=== PATIENT | female | born 1970 | race Caucasian/White ===

== ENCOUNTER 2019-03-11 22:40 | Emergency (ER) | payer MEDICARE, MEDICAID ==
[~2019-03-11] VITALS: Ht 162.6 cm; Wt 107.0 kg
[~2019-03-11 22:40] MED LIST: CLON-285 PO; DOCU-273 PO; DULO20CA50 PO; GEMF600T89 PO; IBUP-1984 PO; LAMO100T2 PO; QUET25TA PO
[2019-03-11 22:58] VITALS: BP 146/94
[2019-03-11 23:24] LABS: URINE HCG NEGATIVE (NEG)
--- NOTE | 2019-03-12 00:09 | NUR ---
ASSISTED Darion CASAS WITH PELVIC EXAMINE, PT MALACHI WELL, SAMPLE SENT TO LAB
[2019-03-12 00:32] LABS: CLARITY,URINE CLEAR (Clear); COLOR,URINE YELLOW (Yellow); GLUCOSE, URINE NEGATIVE (Neg); PROTEIN,URINE NEGATIVE (Neg)
[2019-03-12 00:33] LABS: KETONES,URINE NEGATIVE (Neg); LEUKOCYTE ESTERASE ,URINE SMALL (Neg); NITRITES, URINE NEGATIVE (Neg); OCCULT BLOOD,URINE NEGATIVE (Neg); UA COLLECTION TYPE CLN CATCH MIDSTREAM; UROBILINOGEN,URINE 0.2 E.U/dL (0.2-1.0)
[2019-03-12 00:40] LABS: BACTERIA,URINE FEW /HPF (Neg); RBC,URINE NONE SEEN /HPF (0-2); SQUAMOUS EPITHELIAL CELL,UR FEW /LPF (FEW); WBC,URINE 0-4 /HPF (0-4)
== END 2019-03-12 00:59 | disposition home or self-care (01) ==
LOC: ER 22:41
DX: N89.8 Other specified noninflammatory disorders of vagina (principal); E66.9 Obesity, unspecified; M79.7 Fibromyalgia; Z86.14 Personal history of Methicillin resistant Staphylococcus aureus infection; Z90.49 Acquired absence of other specified parts of digestive tract; Z88.5 Allergy status to narcotic agent; Z90.710 Acquired absence of both cervix and uterus; Z79.899 Other long term (current) drug therapy
CPT/HCPCS: 81001; 81025; 87088; 87210; 99283; Q0112; 81003

== ENCOUNTER 2019-07-26 09:59 | Day surgery (SDC) | payer MEDICARE, MEDICAID ==
[2019-07-25 13:59] LABS: BASOPHILS # (AUTO) 0.1 X10'3 (0-0.2); EOSINOPHILS # (AUTO) 0.1 X10'3 (0-0.9); EOSINOPHILS % (AUTO) 1.5 % (0-6); HEMATOCRIT 42.6 % (35.0-45.0); HEMOGLOBIN 14.4 g/dl (12.0-16.0); LYMPHOCYTES # (AUTO) 2.1 X10'3 (1.1-4.8); LYMPHOCYTES % (AUTO) 34.7 % (21-51); MEAN CORPUSCULAR HGB CONC 33.9 g/dL (33.0-36.5); MEAN CORPUSCULAR VOLUME 82.6 FL (78-98); MONOCYTES # (AUTO) 0.4 X10'3 (0-0.9); MONOCYTES % (AUTO) 6.1 % (2-12); NEUTROPHILS # (AUTO) 3.3 X10'3 (1.8-7.7); NEUTROPHILS % (AUTO) 56.7 % (42-75); PLATELET COUNT 258 X10'3 (140-440); RED BLOOD COUNT 5.16 X10'6 (4.20-5.60); RED CELL DISTRIBUTION WIDTH 13.5 % (11.5-14.5); WHITE BLOOD COUNT 5.9 X10'3 (4.5-11.0)
[2019-07-25 14:13] LABS: ALANINE AMINOTRANSFERASE 27 U/L (12-78); ALBUMIN 3.4 G/DL (3.4-5.0); ALBUMIN/GLOBULIN RATIO 0.9 (1.1-1.5); ALKALINE PHOSPHATASE 86 IU/L (46-116); ANION GAP 10 (8-16); ASPARTATE AMINO TRANSFERASE 21 U/L (10-37); BILIRUBIN,TOTAL 0.3 MG/DL (0.1-1.0); BLOOD UREA NITROGEN 12 MG/DL (7-18); BUN/CREATININE RATIO 11.1 (6.6-38.0); CALCIUM 9.2 MG/DL (8.5-10.1); CHLORIDE 103 MMOL/L (99-107); CREATININE 1.08 MG/DL (0.40-0.90); GLUCOSE 184 MG/DL (70-104); PARTIAL THROMBOPLASTIN TIME 28 SECONDS (22-32); POTASSIUM 3.7 MMOL/L (3.5-5.1); SODIUM 140 MMOL/L (135-145); TOTAL CARBON DIOXIDE 26.8 MMOL/L (24-32); TOTAL PROTEIN 7.3 G/DL (6.4-8.2); eGFR 54 ML/MIN
[~2019-07-26] VITALS: Ht 162.6 cm; Wt 104.6 kg
[2019-07-26] VITALS (10 sets, daily range): BP systolic 91–146; BP diastolic 53–91
[~2019-07-26 09:59] MED LIST changes: -CLON-285 PO; +CLON-565 PO
[2019-07-26] MEDS ORDERED: LORazepam 0.5 MG tablet PO PRN (10:30)
[2019-07-26] MEDS ORDERED: nitroGLYCERIN 0.4mg SUBLingual tab SL PRN (10:30)
[2019-07-26] MEDS ORDERED: diphenhydrAMINE 25mg capsule PO PRN (10:30)
[2019-07-26] MEDS ORDERED: AMIT-189 PO (10:46)
[2019-07-26] MEDS ORDERED: ESTR0.5T PO (10:46)
[2019-07-26] MEDS ORDERED: ACET-2119 PO (10:46)
[2019-07-26] MEDS ORDERED: ESCI20TA PO (10:46)
[2019-07-26] MEDS ORDERED: FAMO20TA8 PO (10:46)
[2019-07-26] MEDS: normal saline 1,000 ML IV SCH ×2 (11:02→13:20)
[2019-07-26] MEDS ORDERED: iohexol 350 MG/ML 50ML vial IV ONE (12:04)
[2019-07-26] MEDS ORDERED: LIDOcaine 1% (10mg/ml)w/preservative injection 20ml MDV ONE (12:04)
[2019-07-26] MEDS ORDERED: iohexol 350MG/ML 100ml bottle IV ONE (12:04)
[2019-07-26] MEDS ORDERED: heparin 1,000 UNITS/NS 500ml 500 ML ONE ×2 (12:04)
[2019-07-26] MEDS ORDERED: midazolam 2 mg/2 ml injection ONE ×2 (12:09→12:21)
[2019-07-26] MEDS ORDERED: fentaNYL/PF 50MCG/1 ML 2ML syringe ONE (12:09)
[2019-07-26] MEDS ORDERED: ondansetron/PF 4mg/2ml inj ONE (13:08)
[2019-07-26] MEDS ORDERED: ketorolac tromethamine 15mg/ml inj. IV ONE (13:45)
[2019-07-26] MEDS ORDERED: atropine 0.1mg/ml 10ml syringe ONE (15:14)
== END 2019-07-26 17:45 | disposition home or self-care (01) ==
LOC: SSTAY O 09:59
PROVIDERS: ATTEND Internal Medicine Cardiovascular Disease
DX: R94.39 Abnormal result of other cardiovascular function study (principal); I25.10 Atherosclerotic heart disease of native coronary artery without angina pectoris; F32.9 Major depressive disorder, single episode, unspecified; E78.5 Hyperlipidemia, unspecified; Z87.891 Personal history of nicotine dependence; Z79.899 Other long term (current) drug therapy; Z88.5 Allergy status to narcotic agent; Z79.01 Long term (current) use of anticoagulants
CPT/HCPCS: 36415; 71046; 80053; 85025; 85610; 85730; 93005; 93458; 99152; 99153; C1769; J0461; J1644; J1885; J2001; J2250; J2405; J3010; J7030; Q0163; Q9967; A4620; A6258; C1760

== ENCOUNTER 2021-03-17 21:54 | Emergency (ER) | payer MEDICARE, MEDICAID ==
[~2021-03-17] VITALS: Ht 162.6 cm; Wt 76.4 kg
[~2021-03-17 21:54] MED LIST changes: +ACET-2119 PO; +AMIT-189 PO; -DOCU-273 PO; -DULO20CA50 PO; +ESCI20TA PO; +ESTR0.5T PO; +FAMO20TA8 PO; -GEMF600T89 PO; -IBUP-1984 PO; -QUET25TA PO
[2021-03-17] MEDS ORDERED: LORazepam 1 MG tablet PO ONE (22:35)
[2021-03-18] MEDS ORDERED: LORazepam 2 mg/ml vial IM ONE (00:15)
[2021-03-18] MEDS ORDERED: metoclopramide 5 mg/ml inj IV ONE (00:15)
[2021-03-18 01:14] VITALS: BP 126/72
== END 2021-03-18 01:39 | disposition home or self-care (01) ==
LOC: ER 21:54
DX: R25.2 Cramp and spasm (principal); M79.7 Fibromyalgia; G89.29 Other chronic pain; Z72.89 Other problems related to lifestyle; Z86.14 Personal history of Methicillin resistant Staphylococcus aureus infection; Z90.49 Acquired absence of other specified parts of digestive tract; Z90.710 Acquired absence of both cervix and uterus; Z88.8 Allergy status to other drugs, medicaments and biological substances; Z79.899 Other long term (current) drug therapy
CPT/HCPCS: 96372; 96374; 99284; J2060; J2765

== ENCOUNTER 2022-04-05 14:27 | Emergency (ER) | payer BC, MEDICAID ==
[~2022-04-05] VITALS: Ht 162.6 cm; Wt 81.0 kg
[2022-04-05 14:46] VITALS: BP 128/74
[2022-04-05 15:38] LABS: CLARITY,URINE CLEAR (Clear); COLOR,URINE YELLOW (Yellow); GLUCOSE, URINE NEGATIVE (Neg); KETONES,URINE NEGATIVE (Neg); LEUKOCYTE ESTERASE ,URINE NEGATIVE (Neg); NITRITES, URINE NEGATIVE (Neg); OCCULT BLOOD,URINE NEGATIVE (Neg); PROTEIN,URINE NEGATIVE (Neg); UA COLLECTION TYPE CLN CATCH MIDSTREAM; UROBILINOGEN,URINE 0.2 E.U/dL (0.2-1.0)
[2022-04-05 15:39] LABS: URINE HCG NEGATIVE (NEG)
[2022-04-05 15:52] LABS: BASOPHILS % (AUTO) 0.5 % (0-1); EOSINOPHILS % (AUTO) 0.4 % (0-6); HEMATOCRIT 43.4 % (35.0-45.0); HEMOGLOBIN 14.9 g/dl (12.0-16.0); LYMPHOCYTES # (AUTO) 1.6 X10'3 (1.1-4.8); LYMPHOCYTES % (AUTO) 24.9 % (21-51); MEAN CORPUSCULAR HEMOGLOBIN 30.1 PG (27.0-31.0); MEAN CORPUSCULAR HGB CONC 34.4 g/dL (33.0-36.5); MEAN CORPUSCULAR VOLUME 87.6 FL (78-98); MEAN PLATELET VOLUME 8.3 FL (7.4-10.4); MONOCYTES # (AUTO) 0.4 X10'3 (0-0.9); MONOCYTES % (AUTO) 6.6 % (2-12); NEUTROPHILS # (AUTO) 4.4 X10'3 (1.8-7.7); NEUTROPHILS % (AUTO) 67.6 % (42-75); PLATELET COUNT 240 X10'3 (140-440); RED BLOOD COUNT 4.95 X10'6 (4.20-5.60); RED CELL DISTRIBUTION WIDTH 12.7 % (11.5-14.5); WHITE BLOOD COUNT 6.5 X10'3 (4.5-11.0)
[2022-04-05 16:06] LABS: ALANINE AMINOTRANSFERASE 33 U/L (12-78); ALBUMIN 3.6 G/DL (3.4-5.0); ALKALINE PHOSPHATASE 79 IU/L (46-116); ANION GAP 8 (8-16); ASPARTATE AMINO TRANSFERASE 26 U/L (10-37); BILIRUBIN,TOTAL 0.5 MG/DL (0.1-1.0); BLOOD UREA NITROGEN 16 MG/DL (7-18); CALCIUM 9.6 MG/DL (8.5-10.1); CHLORIDE 102 MMOL/L (99-107); CREATININE 0.89 MG/DL (0.40-0.90); GLUCOSE 104 MG/DL (70-104); LIPASE 88 U/L (73-393); POTASSIUM 4.6 MMOL/L (3.5-5.1); SODIUM 140 MMOL/L (135-145); TOTAL CARBON DIOXIDE 29.9 MMOL/L (24-32); TOTAL PROTEIN 7.2 G/DL (6.4-8.2); eGFR 67 ML/MIN
[2022-04-05] MEDS ORDERED: dicyclomine 10 MG capsule PO ONE (19:20)
[2022-04-05] MEDS ORDERED: acetaminophen 325mg tablet PO ONE (19:20)
[2022-04-05] MEDS ORDERED: indomethacin 25mg capsule PO ONE (19:20)
[2022-04-05] MEDS ORDERED: ondansetron 4mg rapidly disintigrating tab PO ONE (19:32)
[2022-04-05] MEDS ORDERED: traMADol 50MG tablet PO ONE (21:10)
[2022-04-05] MEDS ORDERED: TRAM50TA2 PO (21:11)
== END 2022-04-05 21:24 | disposition home or self-care (01) ==
LOC: ER 14:28
DX: R10.12 Left upper quadrant pain (principal); G89.29 Other chronic pain; R07.81 Pleurodynia; Z72.89 Other problems related to lifestyle; Z86.14 Personal history of Methicillin resistant Staphylococcus aureus infection; Z90.49 Acquired absence of other specified parts of digestive tract; Z90.710 Acquired absence of both cervix and uterus; Z98.890 Other specified postprocedural states; Z88.5 Allergy status to narcotic agent; Z88.8 Allergy status to other drugs, medicaments and biological substances; Z79.899 Other long term (current) drug therapy
CPT/HCPCS: 36415; 74176; 80053; 81003; 81025; 83690; 85025; 99284

== ENCOUNTER 2024-12-11 13:23 | Outpatient (CLI) | payer MEDICARE, MEDICAID ==
[~2024-12-11 13:23] MED LIST changes: -AMIT-189 PO; +AMIT50TA15 PO; -ESTR0.5T PO; +ESTR0.5T36 PO
--- NOTE | 2024-12-11 20:51 | RADIOLOGY REPORT ---
INDICATION: L SIDED FACE PAIN EXAM DATE: 12/11/2024 01:55 PM COMPARISON: None TECHNIQUE: CT of the sinuses without intravenous contrast. RADIATION DOSE: CTDIvol: 25 mGy, DLP: 250 mGy*cm FINDINGS: The frontal sinuses are clear. The ethmoid air cells are clear bilaterally. The maxillary sinuses a re clear bilaterally. The sphenoid sinuses are clear. The ostiomeatal unit complexes appear patent bilaterally. The cribriform plate and lamina papyracea appear grossly intact. No abnormality of the orbits or globes is identified. The visualized brain is unremarkable. The surrounding soft tissues and osseous structures are unremarkable. IMPRESSION: Clear paranasal sinuses. Anatomy as detailed above. Radiation optimization: All CT scans at this facility use at least one of these dose optimization sheridan hniques: automated exposure control mA and/or kV adjustment per patient size (includes targeted exam s where dose is matched to clinical indication) or iterative reconstruction.
== END 2024-12-11 23:59 | disposition home or self-care (01) ==
LOC: RAD 13:23
PROVIDERS: ATTEND Family Medicine
DX: J32.4 Chronic pansinusitis (principal); R51.9 Headache, unspecified
CPT/HCPCS: 70486